=== PATIENT | female | born 1975 | race Caucasian/White ===

== ENCOUNTER 2023-02-07 18:37 | Outpatient (CLI) | payer OTHER | END 2023-02-07 23:59 | disposition critical access hospital (66) | LOC: EMS 18:37 | DX: M08.09 Unspecified juvenile rheumatoid arthritis, multiple sites (principal) | CPT/HCPCS: A0425; A0429 ==

== ENCOUNTER 2023-02-07 19:13 | Emergency (ER) | payer OTHER ==
[2023-02-07 19:28] VITALS: BP 142/85
[2023-02-07] MEDS ORDERED: CHERRY SYRUP 10 ML UDC PO ONE ×2 (19:28→19:33)
[2023-02-07] MEDS ORDERED: KETOROLAC 30 MG/ML VIAL IM STA (19:28)
[2023-02-07] MEDS ORDERED: DEXAMETHASONE 10 MG/ML VIAL PO STA ×2 (19:28→19:33)
--- NOTE | 2023-02-07 19:31 | ED Physician Documentation ---
History of Present Illness - Stated complaint Stated Complaint: GEN WEAKNESS - Chief complaint Chief Complaint: General - History obtained from History obtained from: Patient - Additonal information Additional information: 47yF with pmh juvenile RA p/w L hip pain, R knee and ankle pain and swelling X 3 days. no trauma to the areas. denies fever. this is the worst flare she has ever experienced per her report. Ambulatory with pain. Review of Systems Constitutional: denies: Fever Musculoskeletal: reports: Joint pain PD PAST MEDICAL HISTORY - Present Medications Home Medications: Ambulatory Orders Medication Instructions Recorded Confirmed predniSONE [Prednisone 21-TAB dose 60 mg PO QDAC 6 Days #21 tab 02/07/23 pack] - Allergies Allergies/Adverse Reactions: Allergies Allergy/AdvReac Type Severity Reaction Status Date / Time morphine Allergy Unknown Verified 02/07/23 19:25 Penicillins Allergy Unknown Verified 02/07/23 19:25 PD ED PE NORMAL - Vitals Vital signs reviewed: Yes - General General: Alert and oriented X 3, No acute distress, Well developed/nourished - HEENT HEENT: Atraumatic, PERRL, EOMI - Derm Derm: Normal color, Warm and dry - Extremities Extremities: No deformity, Normal ROM s pain, No edema, Other (2+ BL DP and PT pulses. normal sensation, movement, cap refill) - Neuro Neuro: No motor deficit, No sensory deficit, Other (ambulatory with pain) - Psych Psych: Normal mood, Normal affect Results - Vitals Vitals: Vital Signs - 24 hr 02/07/23 02/07/23 19:19 19:26 Temperature 37.1 C Heart Rate 77 Respiratory 16 Rate Blood Pressure 142/85 H O2 Saturation 98 98 Oxygen O2 Source Room air PD Medical Decision Making - ED course ED course: 47yF with pmh RA p/w multiple joints with pain / swelling c/w RA flare. low suspicion for traumatic etiology per history. no fever therefore joint space infection unlikely. patient states she is especially concerned about her hip and after discussion of risks and benefits elected for XR. will eval for joint space narrowing c/w osteomalacia or osteoarthritis. XR negative for acute pathology per my interpretation. IM toradol provided for pain relief with improvement in pain scale. First dose steroids provided. Attempted to order one time dose of methotrexate But we do not have it hospital pharmacy. She can f/u with a pcp for methotrexate management. referral provided. Rx for steroid taper sent to pharmacy. Return precautions given. Departure - Departure Disposition: 01 Home, Self Care Clinical Impression: Rheumatoid arthritis Condition: Stable Instructions: ED Arthritis Rheumatoid Follow-Up: Krish Boudreaux MD [Provider Admit Priv/Credential] - Prescriptions: predniSONE [Prednisone 21-TAB dose pack] 60 mg PO QDAC 6 Days #21 tab Comments: You are seen in the emergency department for joint pain and swelling, likely caused by rheumatoid arthritis flare. Please follow-up with a primary care provider (referral provided). A electronic prescription for prednisone steroid taper was sent electronically to [facility] pharmacy in [place]. Take ibuprofen 600 mg every 6 hours as needed for pain. You will need to talk to a primary care provider about getting started on methotrexate therapy, a medication that helps with RA. Return to emergency department for new or worsening symptoms or other concerns.
[2023-02-07] MEDS ORDERED: METHOTREXATE 2.5 MG TABLET PO STA (19:35)
[2023-02-07] MEDS ORDERED: FOLIC ACID 1 MG TABLET PO STA (19:36)
--- NOTE | 2023-02-07 20:35 | XRAY Report ---
PROCEDURE: Hip w/Pelvis 2-3V LT INDICATIONS: L hip pain X 3 days TECHNIQUE: AP pelvis with lateral view of the left hip. COMPARISON: None. FINDINGS: Bones: No fractures or dislocations. No suspicious bony lesions. Soft tissues: No suspicious soft tissue calcifications or masses. IMPRESSION: 1. No fracture or dislocation. 2. Mild to moderate osteoarthritic changes of the left hip. Reviewed by: Arian Devi MD on 02/07/2023 8:33 PM PDT Approved by: Arian Devi MD on 02/07/2023 8:33 PM PDT Station ID: [id number]
== END 2023-02-07 20:22 | disposition home or self-care (01) ==
LOC: ED 19:13
DX: M06.9 Rheumatoid arthritis, unspecified (principal)
CPT/HCPCS: 73502; 96372; 99283; 99284; A9270